=== PATIENT | female | born 1980 | race Caucasian/White ===

== ENCOUNTER 2016-07-28 06:13 | Day surgery (SDC) | payer MEDICAID ==
[2016-07-28] MEDS ORDERED: PROPOFOL 10 MG/ML VIAL IV ONE (13:29)
[2016-07-28] MEDS ORDERED: MIDAZOLAM HCL 2MG/2ML VIAL IV ONE (13:29)
[2016-07-28] MEDS ORDERED: LIDOCAINE 2% MDV (20MG/ML) 20ML VIAL IV ONE (13:29)
--- NOTE | 2016-08-01 10:40 | Operative Note ---
DATE OF SURGERY: 07/28/2016 REQUESTING PHYSICIAN: REMY Hernandez SURGEON: Anna Villanueva MD POSTOPERATIVE DIAGNOSES: 1. A 6 mm sessile polyp in the sigmoid colon that was removed by cold snare. 2. Otherwise normal colon and terminal ileal mucosa. OPERATION: COLONOSCOPY and exam. REASON FOR PROCEDURE: This is a 36-year-old female with history of chronic constipation and abdominal pain who presented for colonoscopy. SEDATION: Sedation as per anesthesia. Pulse oximetry was monitored throughout the duration of the procedure to maintain O2 saturation of 90% or greater. Supplemental oxygen was administered via nasal cannula. Cardiac and vital signs were monitored throughout the duration of the procedure and they were stable. PROCEDURE: Description of the procedure of colonoscopy, risks, and alternatives to the procedure including the risk of bleeding and perforation among others were explained to the patient who voiced understanding and agreed to have the procedure done. A physical examination was performed and the patient was found stable for sedation. The patient was then placed in the left lateral position and sedation was initiated. Digital rectal exam was performed and showed small external hemorrhoids with no palpable rectal masses. A lubricated Olympus PCF-180AL colonoscope was then inserted into the rectum under direct visualization and was advanced to the cecum without difficulty. The ileocecal valve and appendiceal orifice were identified and photographed. The colonic mucosa was carefully examined upon insertion of the colonoscope. There were no lesions noted. The ileocecal valve was intubated and terminal ileal mucosa was inspected for about 10 cm, and it appeared normal. The colonoscope was then withdrawn while carefully examining the colonic mucosal surfaces. No lesions were noted in the cecum, ascending colon, transverse colon, and descending colon. In the sigmoid colon was a 6 mm sessile polyp that was noted and was removed by cold snare. There were no other lesions noted. The colonoscope was then withdrawn into the rectum and retroflexion was performed and grade 1 internal hemorrhoids were noted. The colonoscopy was then withdrawn and the procedure was terminated. The patient tolerated the procedure well without any complications. The patient remained with stable vital signs and was sent to the recovery room. PLAN AND RECOMMENDATIONS: 1. The patient is to be on a high-fiber diet. 2. She is to drink fluids liberally, and she is to have repeat colonoscopy in 5 of 10 years or at age 49 depending on histology of the polyp. I would be happy to see her back in the office as needed. Thank you for allowing me to participate in the care of this patient. Anna Villanueva MD CC: REMY Hernandez
== END 2016-07-28 08:39 | disposition home or self-care (01) ==
LOC: HOP 06:13
PROVIDERS: ATTEND Internal Medicine Gastroenterology
DX: K59.00 Constipation, unspecified (principal); D12.5 Benign neoplasm of sigmoid colon; E78.00 Pure hypercholesterolemia, unspecified

== ENCOUNTER 2016-12-28 06:18 | Day surgery (SDC) | payer MEDICAID ==
[2016-12-28] MEDS ORDERED: LIDOCAINE 2% MDV (20MG/ML) 20ML VIAL IV ONE (06:19)
[2016-12-28] MEDS ORDERED: ONDANSETRON HCL IV 4 MG/2 ML VIAL IVP ONE (06:19)
[2016-12-28] MEDS ORDERED: PROPOFOL 10 MG/ML VIAL IV ONE (06:19)
[2016-12-28] MEDS ORDERED: FENTANYL PF 100MCG/2ML VIAL IV ONE ×2 (06:19)
[2016-12-28] MEDS ORDERED: OXYCODONE HCL/APAP 5MG/325MG TABLET PO ONE (06:19)
[2016-12-28] MEDS ORDERED: ACETAMINOPHEN 1,000 MG/100 ML BTL IV ONE (06:19)
[2016-12-28] MEDS ORDERED: SEVOFLURANE 250 ML INH ONE (06:19)
--- NOTE | 2016-12-28 12:50 | Operative Note ---
DATE OF SURGERY: 12/28/2016 REFERRING PROVIDER: REMY Hernandez PREOPERATIVE DIAGNOSIS: Carpal tunnel syndrome of the right wrist. POSTOPERATIVE DIAGNOSIS: Carpal tunnel syndrome of the right wrist. OPERATIVE PROCEDURE: Decompression of right median nerve of the wrist using 3.5 loop magnification. DESCRIPTION: This 36-year-old female was taken to the operating room and placed in the supine position on the operating room table where general anesthetic was administered. The right upper extremity was elevated and it was prepped with Hibiclens and draped in the usual sterile fashion. It was exsanguinated and the tourniquet inflated to 250 mmHg. A palmar incision was utilized from the base of the webspace of the thumb to the flexor crease of the wrist. At the distal margin of the incision, there was a black body underneath the skin, which appeared to be a pencil lead, and we used a [employer] blade to scrape this from the subcutaneous tissue and the undersurface of the dermis, and it was removed. The wound was irrigated to removal any further debris. It appeared to be a pencil lead. The subcutaneous tissue was divided. Hemostasis was obtained with the electrocautery. Palmar fascia was divided in line with the skin incision. We then exposed the flexor retinaculum, which was punctured, split to its proximal margin, and then with the contents of the carpal tunnel under direct vision, the transverse carpal ligament was transected along its ulnar border and the radial flap was raised to expose the entire median nerve under the transverse carpal ligament. The recurrent motor branch of the median nerve was identified and found to be normal. The nerve appeared to be grossly normal in caliber. The wound was irrigated with lactated Ringer's solution, tourniquet released. Hemostasis was obtained with the electrocautery. The would was closed with interrupted 6-O nylon suture. Sterile dressings were applied with plaster splint immobilization with the wrist in slight dorsiflexion, and the thumb in an adducted position. GROSS PATHOLOGY: This patient had grossly normal appearance of her median nerve. She had what appeared to be a very small fragment of pencil lead just underneath the skin in the lower layer of the dermis and subcutaneous tissue. This was debrided and removed. It was not sent to pathology. CC: REMY Hernandez [facility]ITAL[facility]
== END 2016-12-28 10:05 | disposition home or self-care (01) ==
LOC: SUR 06:18
PROVIDERS: ATTEND Orthopaedic Surgery
DX: G56.01 Carpal tunnel syndrome, right upper limb (principal); J44.9 Chronic obstructive pulmonary disease, unspecified; E78.00 Pure hypercholesterolemia, unspecified; I10 Essential (primary) hypertension; E11.9 Type 2 diabetes mellitus without complications
CPT/HCPCS: 64721; 01810; J2405; J3010

== ENCOUNTER 2017-02-08 05:41 | Day surgery (SDC) | payer MEDICAID ==
[2017-02-08] MEDS ORDERED: FAMOTIDINE 20MG TABLET PO ONE (05:42)
[2017-02-08] MEDS ORDERED: KETOROLAC 30 MG/ML VIAL IVP ONE (05:42)
[2017-02-08] MEDS ORDERED: MECLIZINE 25 MG TABLET PO ONE (05:42)
[2017-02-08] MEDS ORDERED: OXYCODONE HCL/APAP 5MG/325MG TABLET PO ONE (05:42)
[2017-02-08] MEDS ORDERED: SCOPOLAMINE 1 PATCH TDSY TD ONE (05:42)
[2017-02-08] MEDS ORDERED: ONDANSETRON HCL IV 4 MG/2 ML VIAL IVP ONE (05:42)
[2017-02-08] MEDS ORDERED: SEVOFLURANE 250 ML INH ONE (05:42)
[2017-02-08] MEDS ORDERED: PROPOFOL 10 MG/ML VIAL IV ONE (05:42)
[2017-02-08] MEDS ORDERED: METOCLOPRAMIDE 10 MG TABLET PO ONE (05:42)
[2017-02-08] MEDS ORDERED: DEXAMETHASONE 4 MG/ML 1ML VIAL IVP ONE (05:42)
[2017-02-08] MEDS ORDERED: ACETAMINOPHEN 1,000 MG/100 ML BTL IV ONE (06:30)
--- NOTE | 2017-02-08 12:50 | Operative Note ---
DATE OF SURGERY: 02/08/2017 REFERRING: REMY Hernandez PREOPERATIVE DIAGNOSIS: Carpal tunnel syndrome of the left wrist. POSTOPERATIVE DIAGNOSIS: Carpal tunnel syndrome of the left wrist. OPERATIVE PROCEDURE: Decompression, left median nerve of the wrist using 3.5 loop magnification. DESCRIPTION: This 36-year-old female was taken to the operating room and placed in the supine position on the operating room table where general anesthesia was induced. The left upper extremity was then elevated, prepped with Hibiclens, and draped in the usual sterile fashion. It was exsanguinated, and the tourniquet inflated to 250 mmHg. A palmar incision was utilized following the hypothenar crease from the level of the base of the webspace of the thumb to the flexor crease of the wrist. Dissection was carried down through the skin and subcutaneous tissue. Hemostasis obtained with the electrocautery. The palmar fascia was divided in line with the skin incision. The flexor retinaculum was identified. It was punctured, and then split to its proximal margin, and then with the contents of the carpal tunnel under direct vision, the transverse carpal ligament was transected along its ulnar border and the radial flap was raised to expose the entire median nerve under the transverse carpal ligament. The recurrent motor branch of the median nerve was identified and found to be intact. Some thickening of the tenosynovium was identified, but the patient did not demonstrate any gross pathology of the median nerve. The wound was irrigated with lactated Ringer's solution, tourniquet released, hemostasis obtained with the electrocautery, and the wound closed with interrupted 6-0 nylon suture. Sterile dressing with plaster splint immobilization was applied, and the patient was taken to the recovery room in satisfactory condition. GROSS PATHOLOGY: This patient demonstrated thickening of the tenosynovium overlying the median nerve, but epineurotomy was not performed. The nerve itself appeared to be grossly normal. CC: REMY Hernandez [facility]ISIONBernard
== END 2017-02-08 08:32 | disposition home or self-care (01) ==
LOC: SUR 05:41
PROVIDERS: ATTEND Orthopaedic Surgery
DX: G56.02 Carpal tunnel syndrome, left upper limb (principal); E78.00 Pure hypercholesterolemia, unspecified; J43.9 Emphysema, unspecified; E11.9 Type 2 diabetes mellitus without complications
CPT/HCPCS: 64721; 01810; J1885; J2405